=== PATIENT | male | born 1980 | race Caucasian/White ===

== ENCOUNTER 2018-03-07 23:41 | Emergency (ER) | payer OTHER ==
[~2018-03-07] VITALS: Ht 177.8 cm; Wt 73.9 kg
[~2018-03-07 23:41] MED LIST: FLEXERIL PO
[2018-03-07 23:43] VITALS: BP 146/99
[2018-03-07] MEDS ORDERED: CHANTIX0.5 MG PO (23:46)
== END 2018-03-08 00:26 | disposition home or self-care (01) ==
LOC: M.ERS 23:41
DX: S29.8XXA Other specified injuries of thorax, initial encounter (principal); L53.9 Erythematous condition, unspecified; Y08.89XA Assault by other specified means, initial encounter; Y93.89 Activity, other specified; Y92.89 Other specified places as the place of occurrence of the external cause; Y99.8 Other external cause status

== ENCOUNTER → 2018-05-31 | Outpatient (CLI) | payer OTHER ==
[~2018-05-31] MED LIST changes: +CHANTIX0.5 MG PO
[2018-05-31 11:01] LABS: ABSOLUTE EOSINOPHILS 0.3 thou/uL (0.0-0.7); ABSOLUTE LYMPHOCYTES 1.7 thou/uL (0.8-5.3); ABSOLUTE MONOCYTES 0.8 thou/uL (0.0-1.2); ABSOLUTE NEUTROPHILS 4.1 thou/uL (1.6-8.1); BASOPHILS 0.7 %; EOSINOPHILS 4.2 %; HEMATOCRIT 43.7 % (42.0-52.0); HEMOGLOBIN 14.6 gm/dL (14.0-18.0); MCHC 33.5 g/dL (28.0-37.0); MCV 92.5 fL (80.0-100.0); MONOCYTES 11.6 %; MPV 7.7 fl. (7.2-11.1); NUCLEATED RBCS 0 /100WBC; PLATELET COUNT* 236 thou/uL (150-400); POLYS 58.5 %; RBC 4.72 mil/uL (4.50-6.00); RDW-CV 13.5 % (10.5-14.5)
[2018-05-31 11:15] LABS: ALBUMIN 3.9 g/dL (3.4-5.0); ALKALINE PHOSPHATASE 60 U/L (46-116); ANION GAP 6 mmol/L (7-16); BUN 15 mg/dL (7-18); CALCIUM 9.4 mg/dL (8.5-10.1); CHLORIDE 102 mmol/L (98-107); CHOLESTEROL 205 mg/dL (<200); CO2 31 mmol/L (21-32); CREATININE 1.2 mg/dL (0.6-1.3); GLUCOSE 100 mg/dL (70-99); HDL CHOLESTEROL 86 mg/dL (>40); LDL CHOLESTEROL 112 mg/dL (<100); SGOT 24 U/L (15-37); SGPT 33 U/L (30-65); SODIUM 139 mmol/L (136-145); TC:HDL 2.4 Ratio (Not establshd); TOTAL BILIRUBIN 0.4 mg/dL (<0.1-1.0); TRIGLYCERIDE 39 mg/dL (<150); VLDL 8 mg/dL (<40)
[2018-05-31 11:16] LABS: SERUM ASSESSMENT Clear
== END ==
LOC: M.LAB 10:43
PROVIDERS: Specialist
DX: D04.9 Carcinoma in situ of skin, unspecified (principal); R03.0 Elevated blood-pressure reading, without diagnosis of hypertension